=== PATIENT | female | born 1980 | race Caucasian/White ===

== ENCOUNTER 2017-09-07 10:28 | Emergency (ER) | payer OTHER ==
[~2017-09-07] VITALS: Ht 157.5 cm; Wt 89.8 kg
[~2017-09-07 10:28] MED LIST: BENTYL10 MG PO; CIPROFLOXACIN500 M1 PO; CLEOCIN HCL300 MG PO; COMPAZINE10 MG PO; FLEXERIL PO; HYDROCODONE-AP1 EAC6 PO; LEVSIN PO; NOHOMEMEDICATIONS; NORCO 5-325 TA1 EACH PO; PEPCID40 MG PO; PERCOCET 5-3251 EACH PO; PHENERGAN 25 MG25 M1 PO; PREDNISONE 20 M20 M1 PO; PREDNISONE50 MG PO; PREVALITE PACKE1 PKT PG; PROMETHAZINE12.5 M1 PO; ROBAXIN 750 MG750 MG PO; VICODIN 5-5001 EACH PO; ZPAK PO
[2017-09-07] MEDS ORDERED: KEFLEX500 M1 PO ×2 (10:53→11:23)
[2017-09-07] MEDS ORDERED: NORCO 5-325 TA1 EACH PO (11:23)
[2017-09-07] MEDS ORDERED: Magic Mouthwash PO (11:23)
[2017-09-07 11:52] VITALS: BP 114/68
== END 2017-09-07 11:53 | disposition home or self-care (01) ==
LOC: M.ERS 10:28
DX: K02.9 Dental caries, unspecified (principal); N80.9 Endometriosis, unspecified; Z90.710 Acquired absence of both cervix and uterus; Z90.49 Acquired absence of other specified parts of digestive tract; Z98.890 Other specified postprocedural states; Z86.14 Personal history of Methicillin resistant Staphylococcus aureus infection; Z88.5 Allergy status to narcotic agent; Z88.6 Allergy status to analgesic agent; Z88.8 Allergy status to other drugs, medicaments and biological substances; Z77.22 Contact with and (suspected) exposure to environmental tobacco smoke (acute) (chronic)

== ENCOUNTER 2018-05-29 13:45 | Emergency (ER) | payer OTHER ==
[~2018-05-29] VITALS: Ht 157.5 cm; Wt 84.4 kg
[~2018-05-29 13:45] MED LIST changes: +KEFLEX500 M1 PO; +Magic Mouthwash PO
[2018-05-29 14:46] LABS: URINE BILIRUBIN NEGATIVE (Negative); URINE BLOOD TRACE (Negative); URINE CLARITY CLEAR; URINE COLOR YELLOW; URINE GLUCOSE-RANDOM NEGATIVE (Negative); URINE KETONES NEGATIVE (Negative); URINE LEUKOCYTES-REFLEX NEGATIVE (Negative); URINE NITRITE-REFLEX NEGATIVE (Negative); URINE PROTEIN NEGATIVE (Negative); URINE UROBILINOGEN 0.2 E.U./dl (0.2-1.0)
[2018-05-29 14:52] LABS: ABSOLUTE BASOPHILS 0.1 thou/uL (0.0-0.2); ABSOLUTE EOSINOPHILS 0.1 thou/uL (0.0-0.7); ABSOLUTE LYMPHOCYTES 1.8 thou/uL (0.8-5.3); ABSOLUTE MONOCYTES 0.4 thou/uL (0.0-1.2); ABSOLUTE NEUTROPHILS 6.2 thou/uL (1.6-8.1); HEMATOCRIT 43.5 % (37.0-47.0); HEMOGLOBIN 14.3 gm/dL (12.0-15.0); LYMPHOCYTES 20.5 %; MCH 27.3 pg (26.0-34.0); MCHC 32.9 g/dL (28.0-37.0); MCV 82.9 fL (80.0-100.0); MPV 8.4 fl. (7.2-11.1); NUCLEATED RBCS 0 /100WBC; PLATELET COUNT* 333 thou/uL (150-400); POLYS 72.5 %; RBC 5.24 mil/uL (4.20-5.00); RDW-CV 14.6 % (10.5-14.5); WBC 8.6 thou/uL (4.0-11.0)
[2018-05-29 14:53] LABS: AMP/METHAMP Negative (Negative); BARBITURATES Negative (Negative); BENZODIAZEPINES Negative (Negative); COCAINE Negative (Negative); METHADONE Negative (Negative); OPIATES Negative (Negative); PCP Negative (Negative); THC Negative (Negative)
[2018-05-29 15:03] LABS: ANION GAP 7 mmol/L (7-16); BUN 12 mg/dL (7-18); CALCIUM 9.3 mg/dL (8.5-10.1); CHLORIDE 105 mmol/L (98-107); CO2 29 mmol/L (21-32); CREATININE 0.9 mg/dL (0.6-1.3); GLUCOSE 105 mg/dL (70-99); POTASSIUM 3.8 mmol/L (3.5-5.1); SODIUM 141 mmol/L (136-145)
[2018-05-29 15:10] LABS: ALKALINE PHOSPHATASE 72 U/L (46-116); SGOT 17 U/L (15-37); SGPT 21 U/L (30-65); TOTAL BILIRUBIN 0.3 mg/dL (<0.1-1.0); TOTAL PROTEIN 8.3 g/dL (6.4-8.2); TROPONIN-I LEVEL <0.06 ng/mL (<0.06)
[2018-05-29] MEDS ORDERED: NORCO 5-325 TA1 EAC1 PO (15:34)
[2018-05-29 15:50] VITALS: BP 109/68
--- NOTE | 2018-05-31 16:50 | EKG ---
[place] [address] ELECTROCARDIOGRAM REPORT Name: JEREMY ARNOLD Room: [facility]#: [id number] Admission: 05/29/18 Attend Phys: Discharge: 05/29/18 Date of : 78 Report #: [id number] THIS REPORT FOR: //name// [facility] ED Test Date: 2018-05-29 Test Time: 14:07:33 Pat Name: JEREMY ARNOLD Department: Room: Gender: F Poultry Trimmer: : 1980 Requested By: Maite Barajas Order Number: [id number] MD: José Miguel Turcios Measurements Intervals [place] Rate: 67 P: 35 RI: 141 QRS: 22 QRSD: 97 T: -8 QT: 394 QTc: 416 Interpretive Statements Sinus rhythm Borderline T abnormalities, inferior leads Compared to ECG 05/11/2012 00:40:01 T-wave abnormality now present Electronically Signed On 05-31-2018 16:50:23 CDT by José Miguel Turcios [email or web address] <ELECTRONICALLY SIGNED> By: José Miguel Turcios MD, [facility] 05/31/18 1650 06 06 José Miguel Turcios MD, FACC /EPI
== END 2018-05-29 15:51 | disposition home or self-care (01) ==
LOC: M.ERS 13:45
PROVIDERS: Nurse Practitioner Family
DX: R51 Headache (principal); J30.2 Other seasonal allergic rhinitis; R42 Dizziness and giddiness; M79.671 Pain in right foot; R07.89 Other chest pain; N80.9 Endometriosis, unspecified; Z88.5 Allergy status to narcotic agent; Z88.6 Allergy status to analgesic agent; Z88.0 Allergy status to penicillin; Z88.8 Allergy status to other drugs, medicaments and biological substances; Z77.22 Contact with and (suspected) exposure to environmental tobacco smoke (acute) (chronic); Z90.710 Acquired absence of both cervix and uterus; Z90.49 Acquired absence of other specified parts of digestive tract; Z98.890 Other specified postprocedural states; Z86.14 Personal history of Methicillin resistant Staphylococcus aureus infection; Z79.899 Other long term (current) drug therapy

== ENCOUNTER 2019-01-31 12:24 | Emergency (ER) | payer OTHER ==
[~2019-01-31] VITALS: Ht 157.5 cm; Wt 87.1 kg
[~2019-01-31 12:24] MED LIST changes: +NORCO 5-325 TA1 EAC1 PO
[2019-01-31 13:28] LABS: ABSOLUTE BASOPHILS 0.1 thou/uL (0.0-0.2); ABSOLUTE EOSINOPHILS 0.2 thou/uL (0.0-0.7); ABSOLUTE LYMPHOCYTES 2.2 thou/uL (0.8-5.3); ABSOLUTE MONOCYTES 0.5 thou/uL (0.0-1.2); EOSINOPHILS 2.4 %; HEMATOCRIT 42.7 % (37.0-47.0); HEMOGLOBIN 14.3 gm/dL (12.0-15.0); LYMPHOCYTES 31.7 %; MCH 27.7 pg (26.0-34.0); MCHC 33.6 g/dL (28.0-37.0); MCV 82.5 fL (80.0-100.0); MONOCYTES 6.7 %; MPV 8.2 fl. (7.2-11.1); NUCLEATED RBCS 0 /100WBC; PLATELET COUNT* 275 thou/uL (150-400); POLYS 58.2 %; RBC 5.18 mil/uL (4.20-5.00); WBC 6.9 thou/uL (4.0-11.0)
[2019-01-31 13:34] LABS: CALCIUM 8.6 mg/dL (8.5-10.1); CREATININE 0.8 mg/dL (0.6-1.3); MAGNESIUM 2.5 mg/dL (1.8-2.4); POTASSIUM 4.4 mmol/L (3.5-5.1)
[2019-01-31] MEDS ORDERED: MEDROLDOSEPACK PO (14:14)
[2019-01-31] MEDS ORDERED: NORCO 5-325 TA1 EAC1 PO (14:14)
[2019-01-31 14:25] VITALS: BP 114/78
== END 2019-01-31 14:27 | disposition home or self-care (01) ==
LOC: M.ERS 12:24
PROVIDERS: Nurse Practitioner Family
DX: M54.41 Lumbago with sciatica, right side (principal); M54.42 Lumbago with sciatica, left side; N80.9 Endometriosis, unspecified; Z88.5 Allergy status to narcotic agent; Z77.22 Contact with and (suspected) exposure to environmental tobacco smoke (acute) (chronic); Z88.6 Allergy status to analgesic agent; Z88.0 Allergy status to penicillin; Z88.8 Allergy status to other drugs, medicaments and biological substances; Z90.710 Acquired absence of both cervix and uterus; Z90.49 Acquired absence of other specified parts of digestive tract; Z98.890 Other specified postprocedural states

== ENCOUNTER 2019-02-23 19:15 | Emergency (ER) | payer OTHER ==
[~2019-02-23] VITALS: Ht 160 cm; Wt 87.1 kg
[~2019-02-23 19:15] MED LIST changes: +MEDROLDOSEPACK PO
[2019-02-23] MEDS ORDERED: MEDROL DOSPAK21 TA1 PO (20:01)
[2019-02-23 20:09] VITALS: BP 124/62
== END 2019-02-23 20:10 | disposition home or self-care (01) ==
LOC: M.ERS 19:15
DX: M79.671 Pain in right foot (principal); Z90.49 Acquired absence of other specified parts of digestive tract; Z90.710 Acquired absence of both cervix and uterus; Z77.22 Contact with and (suspected) exposure to environmental tobacco smoke (acute) (chronic); Z88.0 Allergy status to penicillin; Z88.5 Allergy status to narcotic agent; Z88.6 Allergy status to analgesic agent; Z88.8 Allergy status to other drugs, medicaments and biological substances

== ENCOUNTER 2019-09-10 10:18 | Emergency (ER) | payer OTHER ==
[~2019-09-10] VITALS: Ht 157.5 cm; Wt 83.9 kg
[~2019-09-10 10:18] MED LIST changes: +MEDROL DOSPAK21 TA1 PO
[2019-09-10 10:35] LABS: INFLUENZA A ANTIGEN Positive (Negative); INFLUENZA B ANTIGEN Negative (Negative)
[2019-09-10] MEDS ORDERED: TAMIFLU75 MG PO (10:46)
[2019-09-10 10:53] VITALS: BP 121/58
== END 2019-09-10 10:53 | disposition home or self-care (01) ==
LOC: M.ERS 10:18
PROVIDERS: Family Medicine
DX: J10.1 Influenza due to other identified influenza virus with other respiratory manifestations (principal); N80.9 Endometriosis, unspecified; Z77.22 Contact with and (suspected) exposure to environmental tobacco smoke (acute) (chronic); Z88.5 Allergy status to narcotic agent; Z88.0 Allergy status to penicillin; Z88.6 Allergy status to analgesic agent; Z88.8 Allergy status to other drugs, medicaments and biological substances; Z90.710 Acquired absence of both cervix and uterus; Z90.49 Acquired absence of other specified parts of digestive tract; Z98.890 Other specified postprocedural states; Z86.14 Personal history of Methicillin resistant Staphylococcus aureus infection

== ENCOUNTER 2019-10-19 17:35 | Emergency (ER) | payer OTHER ==
[~2019-10-19] VITALS: Ht 157.5 cm; Wt 83.9 kg
[~2019-10-19 17:35] MED LIST changes: +TAMIFLU75 MG PO
[2019-10-19 17:51] VITALS: BP 118/68
[2019-10-19] MEDS ORDERED: LIDOCAINE VISC100 ML SWISH&SPIT (18:09)
[2019-10-19] MEDS ORDERED: CLEOCIN HCL150 MG PO (18:09)
== END 2019-10-19 18:17 | disposition home or self-care (01) ==
LOC: M.ERS 17:35
DX: K04.7 Periapical abscess without sinus (principal); F17.210 Nicotine dependence, cigarettes, uncomplicated; H92.01 Otalgia, right ear; Z88.5 Allergy status to narcotic agent; Z88.0 Allergy status to penicillin; Z88.6 Allergy status to analgesic agent; Z90.710 Acquired absence of both cervix and uterus; Z90.49 Acquired absence of other specified parts of digestive tract

== ENCOUNTER 2019-12-28 14:26 | Emergency (ER) | payer OTHER ==
[~2019-12-28] VITALS: Ht 157.5 cm; Wt 92.5 kg
[~2019-12-28 14:26] MED LIST changes: +CLEOCIN HCL150 MG PO; +LIDOCAINE VISC100 ML SWISH&SPIT
[2019-12-28] MEDS ORDERED: CLEOCIN HCL300 MG PO (14:42)
[2019-12-28] MEDS ORDERED: NORCO 5-325 TA1 EAC1 PO (14:42)
[2019-12-28 14:46] VITALS: BP 114/71
== END 2019-12-28 14:46 | disposition home or self-care (01) ==
LOC: M.ERS 14:26
DX: S02.5XXA Fracture of tooth (traumatic), initial encounter for closed fracture (principal); N80.9 Endometriosis, unspecified; Z88.5 Allergy status to narcotic agent; Z88.6 Allergy status to analgesic agent; Z88.0 Allergy status to penicillin; Z88.8 Allergy status to other drugs, medicaments and biological substances; Z77.22 Contact with and (suspected) exposure to environmental tobacco smoke (acute) (chronic); Z90.710 Acquired absence of both cervix and uterus; Z98.890 Other specified postprocedural states; Z86.14 Personal history of Methicillin resistant Staphylococcus aureus infection; X58.XXXA Exposure to other specified factors, initial encounter; Y93.89 Activity, other specified; Y92.89 Other specified places as the place of occurrence of the external cause; Y99.8 Other external cause status

== ENCOUNTER 2020-02-02 10:29 | Emergency (ER) | payer OTHER ==
[~2020-02-02] VITALS: Ht 157.5 cm; Wt 92.5 kg
[2020-02-02] MEDS ORDERED: NORCO 5-325 TA1 EAC1 PO (11:10)
[2020-02-02 11:18] VITALS: BP 154/80
== END 2020-02-02 11:18 | disposition home or self-care (01) ==
LOC: M.ERS 10:29
DX: M79.671 Pain in right foot (principal); Z90.710 Acquired absence of both cervix and uterus; Z90.49 Acquired absence of other specified parts of digestive tract; Z86.14 Personal history of Methicillin resistant Staphylococcus aureus infection; Z98.890 Other specified postprocedural states; Z77.22 Contact with and (suspected) exposure to environmental tobacco smoke (acute) (chronic); Z88.0 Allergy status to penicillin; Z88.6 Allergy status to analgesic agent; Z88.8 Allergy status to other drugs, medicaments and biological substances

== ENCOUNTER 2020-03-04 17:41 | Emergency (ER) | payer OTHER ==
[~2020-03-04] VITALS: Ht 157.5 cm; Wt 94.8 kg
[2020-03-04] MEDS ORDERED: NORCO 5-325 TA1 EAC2 PO (19:52)
[2020-03-04 20:12] VITALS: BP 127/77
== END 2020-03-04 20:12 | disposition home or self-care (01) ==
LOC: M.ERS 17:41
DX: M79.671 Pain in right foot (principal); N80.9 Endometriosis, unspecified; Z90.710 Acquired absence of both cervix and uterus; Z90.49 Acquired absence of other specified parts of digestive tract; Z98.890 Other specified postprocedural states; Z86.14 Personal history of Methicillin resistant Staphylococcus aureus infection; Z77.22 Contact with and (suspected) exposure to environmental tobacco smoke (acute) (chronic); Z88.0 Allergy status to penicillin; Z88.6 Allergy status to analgesic agent; Z88.8 Allergy status to other drugs, medicaments and biological substances

== ENCOUNTER 2020-04-09 09:15 | Emergency (ER) | payer OTHER ==
[~2020-04-09] VITALS: Ht 157.5 cm; Wt 95.3 kg
[~2020-04-09 09:15] MED LIST changes: +NORCO 5-325 TA1 EAC2 PO
[2020-04-09 09:44] VITALS: BP 145/88
== END 2020-04-09 09:44 | disposition home or self-care (01) ==
LOC: M.ERS 09:15
DX: M79.631 Pain in right forearm (principal); N80.9 Endometriosis, unspecified; Z77.22 Contact with and (suspected) exposure to environmental tobacco smoke (acute) (chronic); Z88.5 Allergy status to narcotic agent; Z88.0 Allergy status to penicillin; Z88.6 Allergy status to analgesic agent; Z88.8 Allergy status to other drugs, medicaments and biological substances; Z90.710 Acquired absence of both cervix and uterus; Z90.49 Acquired absence of other specified parts of digestive tract; Z86.14 Personal history of Methicillin resistant Staphylococcus aureus infection; Z98.890 Other specified postprocedural states

== ENCOUNTER 2020-05-22 15:13 | Emergency (ER) | payer OTHER ==
[~2020-05-22] VITALS: Ht 157.5 cm; Wt 95.3 kg
[2020-05-22] MEDS ORDERED: FLEXERIL PO (17:12)
[2020-05-22] MEDS ORDERED: NORCO 5-325 TA1 EAC2 PO (17:12)
[2020-05-22 17:32] VITALS: BP 112/77
== END 2020-05-22 17:33 | disposition home or self-care (01) ==
LOC: M.ERS 15:13
DX: M25.551 Pain in right hip (principal); R10.31 Right lower quadrant pain; Z98.890 Other specified postprocedural states; Z88.6 Allergy status to analgesic agent; Z88.0 Allergy status to penicillin; Z88.8 Allergy status to other drugs, medicaments and biological substances; Z90.710 Acquired absence of both cervix and uterus; Z90.49 Acquired absence of other specified parts of digestive tract; X50.1XXA Overexertion from prolonged static or awkward postures, initial encounter; Y93.89 Activity, other specified; Y92.89 Other specified places as the place of occurrence of the external cause; Y99.8 Other external cause status

== ENCOUNTER 2020-09-02 08:23 | Emergency (ER) | payer OTHER ==
[~2020-09-02] VITALS: Ht 157.5 cm; Wt 93.0 kg
[2020-09-02 08:35] VITALS: BP 134/90
== END 2020-09-02 09:20 | disposition home or self-care (01) ==
LOC: M.ERS 08:23
DX: S93.601A Unspecified sprain of right foot, initial encounter (principal); Z90.710 Acquired absence of both cervix and uterus; Z88.0 Allergy status to penicillin; Z88.5 Allergy status to narcotic agent; Z88.8 Allergy status to other drugs, medicaments and biological substances; Y93.89 Activity, other specified; Y92.89 Other specified places as the place of occurrence of the external cause; Y99.8 Other external cause status

== ENCOUNTER 2020-11-10 13:46 | Emergency (ER) | payer OTHER ==
[~2020-11-10] VITALS: Ht 157.5 cm; Wt 88.5 kg
[2020-11-10 13:54] VITALS: BP 118/64
[2020-11-10] MEDS ORDERED: PERIDEX 0.12%473 M1 SWISH&SPIT (14:23)
[2020-11-10] MEDS ORDERED: NORCO5 PO (14:23)
[2020-11-10] MEDS ORDERED: CLEOCIN HCL300 MG PO (14:23)
== END 2020-11-10 14:43 | disposition home or self-care (01) ==
LOC: M.ERS 13:46
DX: K04.7 Periapical abscess without sinus (principal); Z90.711 Acquired absence of uterus with remaining cervical stump; K03.81 Cracked tooth; Z98.890 Other specified postprocedural states; Z90.49 Acquired absence of other specified parts of digestive tract; Z86.14 Personal history of Methicillin resistant Staphylococcus aureus infection; Z88.5 Allergy status to narcotic agent; Z88.8 Allergy status to other drugs, medicaments and biological substances; Z88.0 Allergy status to penicillin

== ENCOUNTER 2020-12-27 20:18 | Emergency (ER) | payer OTHER ==
[~2020-12-27] VITALS: Ht 154.9 cm; Wt 95.3 kg
[~2020-12-27 20:18] MED LIST changes: +NORCO5 PO; +PERIDEX 0.12%473 M1 SWISH&SPIT
[2020-12-27 20:47] LABS: ABSOLUTE BASOPHILS 0.1 thou/uL (0.0-0.2); ABSOLUTE EOSINOPHILS 0.1 thou/uL (0.0-0.7); ABSOLUTE LYMPHOCYTES 2.2 thou/uL (0.8-5.3); ABSOLUTE MONOCYTES 0.5 thou/uL (0.0-1.2); ABSOLUTE NEUTROPHILS 5.1 thou/uL (1.6-8.1); BASOPHILS 1.3 %; EOSINOPHILS 1.5 %; HEMATOCRIT 41.1 % (37.0-47.0); HEMOGLOBIN 13.7 gm/dL (12.0-15.0); MCH 27.8 pg (26.0-34.0); MCHC 33.3 g/dL (28.0-37.0); MCV 83.4 fL (80.0-100.0); MONOCYTES 6.5 %; MPV 7.8 fl. (7.2-11.1); NUCLEATED RBCS 0 /100WBC; PLATELET COUNT* 366 thou/uL (150-400); POLYS 63.7 %; RBC 4.93 mil/uL (4.20-5.00)
[2020-12-27 20:56] LABS: CALCIUM 8.9 mg/dL (8.5-10.1); CREATININE 0.9 mg/dL (0.6-1.3); POTASSIUM 3.8 mmol/L (3.5-5.1)
[2020-12-27 21:08] LABS: ALBUMIN 3.9 g/dL (3.4-5.0); TOTAL BILIRUBIN 0.2 mg/dL (<0.1-1.0); TOTAL PROTEIN 8.2 g/dL (6.4-8.2)
[2020-12-27 21:08] LABS: URINE BILIRUBIN NEGATIVE (Negative); URINE BLOOD TRACE (Negative); URINE CLARITY CLEAR; URINE COLOR YELLOW; URINE GLUCOSE-RANDOM NEGATIVE (Negative); URINE KETONES NEGATIVE (Negative); URINE LEUKOCYTES-REFLEX NEGATIVE (Negative); URINE NITRITE-REFLEX NEGATIVE (Negative); URINE PROTEIN NEGATIVE (Negative); URINE UROBILINOGEN 0.2 E.U./dl (0.2-1.0)
[2020-12-27 21:22] VITALS: BP 131/74
--- NOTE | 2020-12-28 12:56 | EKG ---
[place] [address] ELECTROCARDIOGRAM REPORT Name: JYOTI ARNOLDY MARIBELL Room: [facility]#: [id number] Admission: 12/27/20 Attend Phys: Discharge: 12/27/20 Date of : 78 Date of Service: 12/27/202024 Report #: [id number] THIS REPORT FOR: //name// [facility] ED Test Date: 2020-12-27 Test Time: 20:25:41 Pat Name: JEREMY ARNOLD Department: Room: Gender: Line Technician: CABELLO : 1980 Requested By: Erica Edwards Order Number: [id number] MD: Edson Membreno Measurements Intervals [place] Rate: 70 P: 43 MI: 149 QRS: 43 QRSD: 101 T: -4 QT: 377 QTc: 407 Interpretive Statements Sinus rhythm Borderline T abnormalities, diffuse leads Compared to ECG 05/29/2018 14:07:33 No significant changes Electronically Signed On 12-28-2020 12:56:20 CDT by Edson Membreno [email or web address] <ELECTRONICALLY SIGNED> By: Edson Membreno MD, [facility] 12/28/20 1256 24 24 Edson Membreno MD, [facility] /EPI
== END 2020-12-27 21:23 | disposition home or self-care (01) ==
LOC: M.ERS 20:18
PROVIDERS: Emergency Medicine
DX: R07.89 Other chest pain (principal); N80.9 Endometriosis, unspecified; Z77.22 Contact with and (suspected) exposure to environmental tobacco smoke (acute) (chronic); Z88.5 Allergy status to narcotic agent; Z88.0 Allergy status to penicillin; Z88.6 Allergy status to analgesic agent; Z88.8 Allergy status to other drugs, medicaments and biological substances; Z90.710 Acquired absence of both cervix and uterus; Z98.890 Other specified postprocedural states; Z86.14 Personal history of Methicillin resistant Staphylococcus aureus infection